=== PATIENT | male | born 1970 | race Caucasian/White ===

== ENCOUNTER 2022-05-29 18:53 | Emergency (ER) | payer OTHER ==
[~2022-05-29] VITALS: Ht 182.9 cm; Wt 90.7 kg
[2022-05-29] MEDS ORDERED: AMOXICILLIN500 MG PO (19:37)
--- OUTSIDE RECORDS SUMMARY | 2022-05-29 21:24 | XMS ---
PreManage Notification: DALTON SANTOS [employer] Director Events No recent Security Events currently on file CRITERIA MET - [facility] - 2 Visits in 30 Days CARE PROVIDERS SAMMY WESTON [facility] Current PHONE: Unknown SHIMON PINO [facility] Current PHONE: Unknown Joyce has no Care Guidelines for this patient. Wade VISIT COUNT (12 MO.) 1 Tom Quinonez [facility] [address] TOTAL 2 NOTE: Visits indicate total known visits. ED/UCC VISIT TRACKING (12 MO.) 05/29/2022 18:55 [facility] TYPE: Emergency COMPLAINT: - N/V SOB [facility] 01[facility] DIAGNOSES: - Elevated blood-pressure reading, without diagnosis of hypertension - Puncture wound without foreign body, right foot, initial encounter INPATIENT VISIT TRACKING (12 MO.) No inpatient visits to display in this time frame [email or web address]
[2022-05-29] MEDS ORDERED: IMODIUM A-D2 M2 PO (22:01)
[2022-05-29] MEDS ORDERED: VISTARIL25 MG PO (22:01)
[2022-05-29] MEDS ORDERED: ONDANSETRON ODT4 MG PO (22:01)
[2022-05-29] MEDS ORDERED: CLONIDINE HCL0.1 MG PO (22:01)
--- NOTE | 2022-05-31 13:10 | EKG ---
[facility] [address] [facility] [facility] [place] [address] Signed Normal sinus rhythm Left anterior fascicular block Left ventricular hypertrophy ( Cricket product , Romhilt-Seth ) Abnormal ECG No previous ECGs available Confirmed by MISSY CONTE MD ([id number]) on 05/31/2022 1:10:39 PM Electronically Signed By: IMSSY CONTE MD 05/31/22 1310 PATIENT NAME: DALTON SANTOS Electrocardiogram DATE OF : 72 PHYSICIAN: MISSY CONTE MD REPORT #: [id number] REPORT IS CONFIDENTIAL AND NOT TO BE RELEASED WITHOUT AUTHORIZATION
== END 2022-05-29 22:56 | disposition home or self-care (01) ==
LOC: ED 18:53
DX: F11.13 Opioid abuse with withdrawal (principal)
CPT/HCPCS: 36415; 80053; 81001; 83605; 83690; 84484; 85025; 93005; 93010; 96361; 96374; 96375; 99284-25; A9270; J2060; J2405; J7030